=== PATIENT | female | born 1955 | race Asian ===

== ENCOUNTER 2018-01-24 11:18 | Day surgery (SDC) | payer BC ==
[2018-01-24] MEDS ORDERED: PROPOFOL 40 ML (14:16)
== END 2018-01-24 15:43 | disposition home or self-care (01) ==
LOC: GIL 11:18
DX: Z12.11 Encounter for screening for malignant neoplasm of colon (principal); D12.6 Benign neoplasm of colon, unspecified
CPT/HCPCS: 45380; 88305